=== PATIENT | female | born 1980 | race Caucasian/White ===

== ENCOUNTER 2016-05-28 10:49 | Emergency (ER) | payer OTHER ==
[~2016-05-28 10:49] MED LIST: CIPROFLOXACIN500 M1 PO; HUMULIN 70100 UNIT/1 SQ; HYDROCODON-ACE1 EAC2 PO; LANTUS100 UNIT/1 SQ; NICODERM 14MG PA1 EA TOP
== END 2016-05-28 12:24 | disposition home or self-care (01) ==
LOC: ER 10:49
DX: J20.9 Acute bronchitis, unspecified (principal); E11.9 Type 2 diabetes mellitus without complications; K21.9 Gastro-esophageal reflux disease without esophagitis; F17.210 Nicotine dependence, cigarettes, uncomplicated; Z88.0 Allergy status to penicillin; Z88.5 Allergy status to narcotic agent
CPT/HCPCS: 71020; 87400; 99283; 99283-25